=== PATIENT | male | born 1950 | race Caucasian/White ===

== ENCOUNTER 2019-10-23 20:02 | Inpatient (IN) | payer MEDICARE ==
[~2019-10-23] VITALS: Ht 185.4 cm; Wt 78.9 kg
[2019-10-23] MEDS: DILTIAZEM HCL 5 MG/ML 5 ML VIAL IVP ONE ×2 (20:30→20:34)
[2019-10-23] MEDS ORDERED: SODIUM CHLORIDE 0.9% 1,000 ML IV ONE (20:30)
[2019-10-23 20:39] LABS: BASOPHILS % (AUTO) 0.5 % (0.0-2.0); EOSINOPHILS % (AUTO) 2.4 % (1.0-6.0); HEMATOCRIT 33.2 % (41-53); HEMOGLOBIN 10.6 g/dL (13.5-17.5); LYMPHOCYTES # (AUTO) 4.2 K/uL (1.0-4.8); LYMPHOCYTES % (AUTO) 47.8 % (22.0-44.0); MEAN CORPUSCULAR HEMOGLOBIN 29.4 pg (26.0-34.0); MEAN CORPUSCULAR HGB CONC 31.9 G/dL (31.0-37.0); MEAN CORPUSCULAR VOLUME 92 fL (80-100); MONOCYTES # (AUTO) 0.8 K/uL (0.1-1.0); MONOCYTES % (AUTO) 9.1 % (2.0-9.0); NEUTROPHILS # (AUTO) 3.5 K/uL (1.8-7.7); NEUTROPHILS % (AUTO) 40.2 % (40.0-70.0); PLATELET COUNT (AUTO) 289 K/uL (150-450); RED BLOOD CELL COUNT(AUTO) 3.61 MIL/uL (4.50-5.90); RED CELL DISTRIBUTION WIDTH 18.2 % (11.5-14.5)
[2019-10-23 20:47] LABS: ANION GAP 7 mmol/L (8-16); CALCIUM, TOTAL 8.7 mg/dL (8.8-10.5); CARBON DIOXIDE 27 mmol/L (22-29); CHLORIDE 101 mmol/L (98-107); CREATININE 1.34 mg/dL (0.60-1.30); GLOMERULAR FILTR. RATE CALC 53 mL/min (>60); GLUCOSE,RANDOM 231 mg/dL (70-110); SODIUM SERUM 135 mmol/L (136-145); UREA NITROGEN, BLOOD 38 mg/dL (7-18)
[2019-10-23 20:55] LABS: AMMONIA 90 umol/L (11-32)
[2019-10-23 20:58] LABS: TROPONIN I < 0.02 ng/mL (0.00-0.05)
[2019-10-23 21:09] LABS: LACTIC ACID 2.4 mmol/L (0.4-2.0)
[2019-10-23 21:12] LABS: ALANINE AMINOTRANSFERASE 59 U/L (12-78); ALKALINE PHOSPHATASE 107 U/L (46-116); ASPARTATE AMINOTRANSFERASE 88 U/L (15-37); BILIRUBIN,TOTAL 0.2 mg/dL (0.1-1.0); CREATINE KINASE, TOTAL ONLY 83 U/L (39-308)
[2019-10-23 21:13] LABS: PROTHROMBIN TIME 10.6 SEC (9.4-11.6)
[2019-10-23] MEDS: PROPOFOL 1000 MG/ISO-OSM 100 ML IV PRN (21:30)
[2019-10-23 21:34] LABS: ABG A-A DIFF O2 461.2 mmHg (10-20.0); ABG BASE EXCESS -6.6 mmol/L (-2.0-3.0); ABG CARBOXYHEMOGLOBIN 1.3 % (0.0-1.5); ABG HCO3 18.6 mmol/L (22.0-26.0); ABG OXYGEN CONTENT 15.4 mL/dL (15.0-23.0); ABG OXYGEN SATURATION 98.5 % (95.0-98.0); ABG OXYHEMOGLOBIN 97.2 % (94.0-100.0); PO2, ARTERIAL BG 183.2 mmHg (79.0-87.0); SOURCE, BLOOD GAS ARTERIAL; TEMPERATURE, FAHRENHEIT, BG 98.4 FAHREN (96.0-98.6)
[2019-10-23 21:36] LABS: ABG PCO2 69 mmHg (35-45); ABG PH 7.132 (7.35-7.450); SITE, BLOOD GAS RT RADIAL
[2019-10-23 21:37] LABS: O2 DEVICE,BLOOD GAS VENTILATOR (ROOM AIR); PEEP,BG 5 cm H2O; VT, ABG 500 ml
[2019-10-23] MEDS ORDERED: MELA1TAB28 PO (22:30)
[2019-10-23] MEDS ORDERED: OLAN2.5T3 PO (22:30)
[2019-10-23] MEDS ORDERED: CALC0.25 PO (22:30)
[2019-10-23] MEDS ORDERED: CHOL100018 PO (22:30)
[2019-10-23] MEDS ORDERED: METO50 PO (22:30)
[2019-10-23] MEDS ORDERED: POTA-79 PO (22:30)
[2019-10-23] MEDS ORDERED: GABA-1181 PO (22:30)
[2019-10-23] MEDS ORDERED: CLOP-31 PO (22:30)
[2019-10-23] MEDS ORDERED: PERCT PO (22:30)
[2019-10-23 22:44] LABS: APPEARANCE,URINE CLEAR (CLEAR); BILIRUBIN,URINE NEGATIVE (NEGATIVE); GLUCOSE, URINE (UA) 100 mg/dL (NEGATIVE); KETONES,URINE NEGATIVE (NEGATIVE); LEUKOCYTE ESTERASE ,URINE NEGATIVE (NEGATIVE); NITRATE,URINE NEGATIVE (NEGATIVE); OCCULT BLOOD,URINE NEGATIVE (NEGATIVE); PROTEIN,URINE SEE CONFIRM (NEGATIVE)
[2019-10-23 22:49] LABS: AMPHET/METH SCREEN,URINE NEGATIVE (NEGATIVE); BARBITURATE SCREEN, URINE NEGATIVE (NEGATIVE); BENZODIAZEPINES SCREEN,URINE NEGATIVE (NEGATIVE); CANNABINOID SCREEN,URINE NEGATIVE (NEGATIVE); COCAINE SCREEN,URINE NEGATIVE (NEGATIVE); METHADONE SCREEN, URINE NEGATIVE (NEGATIVE); OPIATE SCREEN,URINE POSITIVE (NEGATIVE)
[2019-10-23 22:51] LABS: PHENCYCLIDINE SCREEN,URINE NEGATIVE (NEGATIVE); SULFOSALICYLIC ACID,URINE 4+ (Negative)
[2019-10-23 22:53] LABS: AMORPHOUS SEDIMENT,UR Few /LPF (None Seen); BACTERIA,URINE None Seen /HPF (None Seen); RBC,URINE 0-2 /HPF (0-2); SQUAMOUS EPITHELIAL CELL,UR Rare /LPF (None Seen); WBC,URINE 0-2 /HPF (0-5)
[2019-10-23] MEDS ORDERED: SODIUM CHLORIDE 0.9% 2,200 ML IV ONE (23:00)
[2019-10-24] VITALS (9 sets, daily range): BP systolic 78–134; BP diastolic 54–92
[2019-10-24] MEDS ORDERED: BISACODYL 10 MG RECTAL RECTAL SUPPOSITORY PR PRN (00:15)
[2019-10-24] MEDS ORDERED: ONDANSETRON HCL 4 MG/2 ML VIAL IVP PRN (00:15)
[2019-10-24] MEDS ORDERED: MAGNESIUM HYDROXIDE SUSPENSION 30 ML UDCUP PO PRN (00:15)
[2019-10-24] MEDS ORDERED: HEPARIN SODIUM,PORCINE 5,000 UNITS/ML VIAL IVP ONE (00:30)
[2019-10-24] MEDS ORDERED: AMIODARONE HCL 360 MG in DEXTROSE 5%-WATER 242.8 ML IV ONE (00:30)
[2019-10-24] MEDS ORDERED: AMIODARONE HCL 150 MG in DEXTROSE 5%-WATER 97 ML IV ONE (00:30)
[2019-10-24] MEDS ORDERED: HEPARIN SODIUM,PORCINE 5,000 UNITS/ML VIAL IVP PRN (00:30)
[2019-10-24] MEDS: PHENYLEPHRINE 200 MG/D5%-WATER 250 ML IV PRN ×2 (00:50→20:25)
[2019-10-24] MEDS: CefTRIAXone 1 GM/DEXTROSE 50 ML IV SCH (01:24)
[2019-10-24] MEDS: ACETAMINOPHEN 325 MG TABLET PO PRN ×2 (01:33→05:54)
[2019-10-24] MEDS: AZITHROMYCIN 500 MG/NS 250 ML IV SCH (01:58)
[2019-10-24] MEDS: PROPOFOL 1000 MG/ISO-OSM 100 ML IV PRN ×3 (02:00→19:57)
[2019-10-24] MEDS: HEPARIN SODIUM 25000 UNITS/D5W 250 ML IV PRN ×2 (02:02→17:53)
[2019-10-24 06:03] LABS: BASOPHILS % (AUTO) 0.3 % (0.0-2.0); EOSINOPHILS % (AUTO) 0.1 % (1.0-6.0); HEMATOCRIT 33.4 % (41-53); HEMOGLOBIN 10.7 g/dL (13.5-17.5); LYMPHOCYTES % (AUTO) 15.6 % (22.0-44.0); MEAN CORPUSCULAR HEMOGLOBIN 29.1 pg (26.0-34.0); MEAN CORPUSCULAR HGB CONC 31.9 G/dL (31.0-37.0); MEAN CORPUSCULAR VOLUME 91 fL (80-100); MONOCYTES # (AUTO) 1.2 K/uL (0.1-1.0); MONOCYTES % (AUTO) 8.9 % (2.0-9.0); NEUTROPHILS # (AUTO) 9.9 K/uL (1.8-7.7); NEUTROPHILS % (AUTO) 75.1 % (40.0-70.0); PLATELET COUNT (AUTO) 294 K/uL (150-450); RED BLOOD CELL COUNT(AUTO) 3.66 MIL/uL (4.50-5.90); RED CELL DISTRIBUTION WIDTH 17.6 % (11.5-14.5)
[2019-10-24 06:08] LABS: ANION GAP 4 mmol/L (8-16); CALCIUM, TOTAL 8.3 mg/dL (8.8-10.5); CARBON DIOXIDE 27 mmol/L (22-29); CHLORIDE 104 mmol/L (98-107); CREATININE 0.98 mg/dL (0.60-1.30); GLOMERULAR FILTR. RATE CALC > 60 mL/min (>60); GLUCOSE,RANDOM 123 mg/dL (70-110); POTASSIUM 4.1 mmol/L (3.5-5.1); SODIUM SERUM 135 mmol/L (136-145); UREA NITROGEN, BLOOD 31 mg/dL (7-18)
[2019-10-24] MEDS ORDERED: AMIODARONE HCL 540 MG in DEXTROSE 5%-WATER 239.2 ML IV ONE (06:30)
[2019-10-24] MEDS: HYDROCODONE/ACETAMINOPHEN 5-325 MG TABLET PO PRN ×2 (06:41→15:38)
[2019-10-24 09:04] LABS: SITE, BLOOD GAS LFT RADIAL
[2019-10-24 09:05] LABS: ABG BASE EXCESS -5.8 mmol/L (-2.0-3.0); ABG HCO3 19.9 mmol/L (22.0-26.0); ABG OXYHEMOGLOBIN 95.2 % (94.0-100.0); ABG PCO2 44 mmHg (35-45); ABG PH 7.288 (7.35-7.450); ABG TOTAL HEMOGLOBIN 11.1 G/dL (12.0-18.0); PO2, ARTERIAL BG 87.2 mmHg (79.0-87.0); TEMPERATURE, FAHRENHEIT, BG 100.1 FAHREN (96.0-98.6)
[2019-10-24 09:06] LABS: ABG A-A DIFF O2 213.7 mmHg (10-20.0); ABG CARBOXYHEMOGLOBIN 0.7 % (0.0-1.5); ABG METHEMOGLOBIN 0.3 % (0.0-1.5); ABG OXYGEN SATURATION 96.2 % (95.0-98.0); O2 DEVICE,BLOOD GAS VENTILATOR (ROOM AIR); VT, ABG 500 ml
[2019-10-24 09:07] LABS: PEEP,BG 5 cm H2O; SPONTANEOUS VT, BG 480 ml
[2019-10-24] MEDS: FAMOTIDINE 10 MG/ML 2 ML VIAL IVP SCH ×2 (09:46→20:57)
[2019-10-24] MEDS: DOCUSATE SODIUM 100 MG CAPSULE PO SCH ×2 (09:46→20:57)
[2019-10-24] MEDS: HEPARIN SODIUM,PORCINE 5,000 UNITS/ML VIAL IVP PRN (09:49)
[2019-10-24] MEDS ORDERED: ETOMIDATE 2 MG/ML 10 ML VIAL ONE (16:56)
[2019-10-24] MEDS ORDERED: VECURONIUM BROMIDE 10 MG/VIAL ONE (16:56)
[2019-10-24 17:08] LABS: SOURCE, BLOOD GAS ARTERIAL
[2019-10-24] MEDS ORDERED: SODIUM CHLORIDE 0.9% 100 ML ONE (18:52)
[2019-10-24] MEDS ORDERED: IOVERSOL 350 MG/ML 100 ML VIAL ONE (18:53)
[2019-10-24] MEDS: MORPHINE SULFATE 2 MG/ML SYRINGE IVP PRN (19:27)
[2019-10-24] MEDS: NICOTINE 14 MG/24 HOUR PATCH TD SCH (20:57)
[2019-10-24] MEDS ORDERED: LACTULOSE 20 GM/30 ML SOLUTION UDCUP NG ONE (21:45)
[2019-10-24] MEDS: SODIUM CHLORIDE 0.45% 1,000 ML IV SCH (22:23)
[2019-10-25] VITALS (9 sets, daily range): BP systolic 93–131; BP diastolic 53–91
[2019-10-25] MEDS: CefTRIAXone 1 GM/DEXTROSE 50 ML IV SCH (00:51)
[2019-10-25] MEDS: AMIODARONE HCL 750 MG in DEXTROSE 5%-WATER 485 ML IV SCH (01:02)
[2019-10-25] MEDS: PROPOFOL 1000 MG/ISO-OSM 100 ML IV PRN ×2 (01:46→06:19)
[2019-10-25] MEDS: AZITHROMYCIN 500 MG/NS 250 ML IV SCH (02:07)
[2019-10-25] MEDS: MORPHINE SULFATE 2 MG/ML SYRINGE IVP PRN ×6 (03:03→23:13)
[2019-10-25] MEDS: ACETAMINOPHEN 325 MG TABLET PO PRN (03:03)
[2019-10-25 05:21] LABS: BASOPHILS % (AUTO) 0.5 % (0.0-2.0); EOSINOPHILS % (AUTO) 0.9 % (1.0-6.0); HEMATOCRIT 29.7 % (41-53); HEMOGLOBIN 9.8 g/dL (13.5-17.5); LYMPHOCYTES # (AUTO) 1.6 K/uL (1.0-4.8); LYMPHOCYTES % (AUTO) 18.7 % (22.0-44.0); MEAN CORPUSCULAR HEMOGLOBIN 29.4 pg (26.0-34.0); MEAN CORPUSCULAR HGB CONC 32.8 G/dL (31.0-37.0); MEAN CORPUSCULAR VOLUME 90 fL (80-100); MONOCYTES # (AUTO) 1.1 K/uL (0.1-1.0); MONOCYTES % (AUTO) 12.8 % (2.0-9.0); NEUTROPHILS # (AUTO) 5.7 K/uL (1.8-7.7); NEUTROPHILS % (AUTO) 67.1 % (40.0-70.0); PLATELET COUNT (AUTO) 188 K/uL (150-450); RED BLOOD CELL COUNT(AUTO) 3.32 MIL/uL (4.50-5.90); RED CELL DISTRIBUTION WIDTH 17.6 % (11.5-14.5)
[2019-10-25 05:34] LABS: ALANINE AMINOTRANSFERASE 44 U/L (12-78); ALBUMIN 2.2 g/dL (3.4-5.0); ALKALINE PHOSPHATASE 71 U/L (46-116); ANION GAP 8 mmol/L (8-16); ASPARTATE AMINOTRANSFERASE 46 U/L (15-37); BILIRUBIN,TOTAL 0.4 mg/dL (0.1-1.0); CALCIUM, TOTAL 8.2 mg/dL (8.8-10.5); CARBON DIOXIDE 26 mmol/L (22-29); CHLORIDE 104 mmol/L (98-107); CREATININE 0.77 mg/dL (0.60-1.30); GLOMERULAR FILTR. RATE CALC > 60 mL/min (>60); GLUCOSE,RANDOM 116 mg/dL (70-110); POTASSIUM 3.3 mmol/L (3.5-5.1); SODIUM SERUM 138 mmol/L (136-145); TOTAL PROTEIN, SERUM 6.4 g/dL (6.4-8.2); UREA NITROGEN, BLOOD 17 mg/dL (7-18)
[2019-10-25] MEDS ORDERED: POTASSIUM CHL 10 MEQ/WATER 50 ML IV PRN ×2 (06:00)
[2019-10-25] MEDS ORDERED: POTASSIUM CHLORIDE 10% 40 MEQ/30 ML LIQUID UDCUP GT PRN ×2 (06:00)
[2019-10-25] MEDS ORDERED: POTASSIUM CHLORIDE 20 MEQ ER TABLET PO PRN ×2 (06:00)
[2019-10-25] MEDS ORDERED: SODIUM CHLORIDE 0.9% 100 ML ONE (08:24)
[2019-10-25] MEDS ORDERED: IOVERSOL 350 MG/ML 100 ML VIAL ONE (08:24)
[2019-10-25] MEDS: NICOTINE 14 MG/24 HOUR PATCH TD SCH (08:58)
[2019-10-25] MEDS: DOCUSATE SODIUM 100 MG CAPSULE PO SCH ×2 (08:58→21:00)
[2019-10-25] MEDS: FAMOTIDINE 10 MG/ML 2 ML VIAL IVP SCH ×2 (08:58→20:15)
[2019-10-25 09:52] LABS: ABG HCO3 21.9 mmol/L (22.0-26.0); ABG METHEMOGLOBIN 0.2 % (0.0-1.5); SOURCE, BLOOD GAS ARTERIAL; TEMPERATURE, FAHRENHEIT, BG 98.6 FAHREN (96.0-98.6)
[2019-10-25 09:55] LABS: ABG A-A DIFF O2 181.6 mmHg (10-20.0); ABG BASE EXCESS -3.9 mmol/L (-2.0-3.0); ABG CARBOXYHEMOGLOBIN 0.8 % (0.0-1.5); ABG OXYGEN CONTENT 13.5 mL/dL (15.0-23.0); ABG OXYGEN SATURATION 95.3 % (95.0-98.0); ABG OXYHEMOGLOBIN 94.3 % (94.0-100.0); ABG PCO2 29 mmHg (35-45); ABG PH 7.459 (7.35-7.450); ABG TOTAL HEMOGLOBIN 10.1 G/dL (12.0-18.0); PO2, ARTERIAL BG 70.6 mmHg (79.0-87.0); SITE, BLOOD GAS RT RADIAL
[2019-10-25 09:56] LABS: CPAP, BG 0 cm H2O; O2 DEVICE,BLOOD GAS VENTILATOR (ROOM AIR); PEEP,BG 0 cm H2O; PRESSURE SUPPORT, BG 8 cm H2O; SPONTANEOUS VT, BG 630 ml; VENT MODE, BG SPONTANEOUS (ROOM AIR)
[2019-10-25] MEDS: SODIUM CHLORIDE 0.45% 1,000 ML IV SCH (13:01)
[2019-10-25] MEDS ORDERED: DIGOXIN 250 MCG/ML 2 ML AMP IVP ONE (13:30)
[2019-10-25] MEDS: HYDROCODONE/ACETAMINOPHEN 5-325 MG TABLET PO PRN (19:38)
[2019-10-25] MEDS: MethylPREDNISolone SOD SUCC 40 MG/ML VIAL IVP SCH ×2 (20:15→23:13)
[2019-10-25] MEDS: HEPARIN SODIUM 25000 UNITS/D5W 250 ML IV PRN (21:18)
[2019-10-25] MEDS: BUDESONIDE 0.5 MG/2 ML NEB SOLUTION NEB SCH (23:51)
[2019-10-26] VITALS (10 sets, daily range): BP systolic 107–143; BP diastolic 69–98
[2019-10-26] MEDS: CefTRIAXone 1 GM/DEXTROSE 50 ML IV SCH (01:37)
[2019-10-26] MEDS: AMIODARONE HCL 750 MG in DEXTROSE 5%-WATER 485 ML IV SCH (01:38)
[2019-10-26] MEDS: AZITHROMYCIN 500 MG/NS 250 ML IV SCH (02:12)
[2019-10-26] MEDS: HYDROCODONE/ACETAMINOPHEN 5-325 MG TABLET PO PRN ×2 (02:43→17:58)
[2019-10-26] MEDS: MORPHINE SULFATE 2 MG/ML SYRINGE IVP PRN ×11 (03:24→23:55)
[2019-10-26] MEDS: SODIUM CHLORIDE 0.45% 1,000 ML IV SCH ×2 (05:28→22:54)
[2019-10-26] MEDS: MethylPREDNISolone SOD SUCC 40 MG/ML VIAL IVP SCH ×4 (05:29→23:02)
[2019-10-26] MEDS: HEPARIN SODIUM,PORCINE 5,000 UNITS/ML VIAL IVP PRN (06:06)
[2019-10-26 06:35] LABS: BASOPHILS % (AUTO) 0.2 % (0.0-2.0); EOSINOPHILS % (AUTO) 0 % (1.0-6.0); HEMOGLOBIN 10.5 g/dL (13.5-17.5); LYMPHOCYTES # (AUTO) 0.7 K/uL (1.0-4.8); LYMPHOCYTES % (AUTO) 13.7 % (22.0-44.0); MEAN CORPUSCULAR HEMOGLOBIN 29.8 pg (26.0-34.0); MEAN CORPUSCULAR HGB CONC 33.9 G/dL (31.0-37.0); MEAN CORPUSCULAR VOLUME 88 fL (80-100); MONOCYTES # (AUTO) 0.2 K/uL (0.1-1.0); MONOCYTES % (AUTO) 3.1 % (2.0-9.0); NEUTROPHILS # (AUTO) 4.1 K/uL (1.8-7.7); PLATELET COUNT (AUTO) 166 K/uL (150-450); RED BLOOD CELL COUNT(AUTO) 3.53 MIL/uL (4.50-5.90)
[2019-10-26 06:43] LABS: ANION GAP 7 mmol/L (8-16); CALCIUM, TOTAL 8.3 mg/dL (8.8-10.5); CARBON DIOXIDE 25 mmol/L (22-29); CHLORIDE 102 mmol/L (98-107); CREATININE 0.72 mg/dL (0.60-1.30); GLOMERULAR FILTR. RATE CALC > 60 mL/min (>60); GLUCOSE,RANDOM 164 mg/dL (70-110); POTASSIUM 3.5 mmol/L (3.5-5.1); SODIUM SERUM 134 mmol/L (136-145); UREA NITROGEN, BLOOD 13 mg/dL (7-18)
[2019-10-26] MEDS: DOCUSATE SODIUM 100 MG CAPSULE PO SCH ×2 (07:24→21:00)
[2019-10-26] MEDS: NICOTINE 14 MG/24 HOUR PATCH TD SCH (07:25)
[2019-10-26] MEDS: FAMOTIDINE 10 MG/ML 2 ML VIAL IVP SCH ×2 (07:25→20:40)
[2019-10-26] MEDS: BUDESONIDE 0.5 MG/2 ML NEB SOLUTION NEB SCH ×2 (09:23→20:27)
[2019-10-26] MEDS ORDERED: PENTETATE DTPA TC99M/MCL ISOTOPE 1 EA INJ INJ ONE (10:25)
[2019-10-26] MEDS ORDERED: MAA ALBUMIN AGGREGATED TC99M/UD<10MCL ISOTOPE 1 EA INJ INJ ONE (10:50)
[2019-10-26 12:54] LABS: PROTHROMBIN TIME 10.7 SEC (9.4-11.6)
[2019-10-26] MEDS: APIXABAN 5 MG TABLET PO SCH ×2 (13:00→22:57)
[2019-10-26] MEDS: LIDOCAINE 5% TRANSDERMAL PATCH TD SCH (14:06)
[2019-10-26] MEDS: AMIODARONE HCL 200 MG TABLET PO SCH ×2 (16:56→20:49)
[2019-10-26] MEDS: METOPROLOL SUCCINATE 50 MG ER TABLET PO SCH (17:06)
[2019-10-26] MEDS: -LIDODERM PATCH NOTE- MISC SCH (22:54)
[2019-10-27] VITALS (7 sets, daily range): BP systolic 111–141; BP diastolic 72–102
[2019-10-27] MEDS ORDERED: SODIUM CHLORIDE 0.9% 100 ML ONE (00:56)
[2019-10-27] MEDS: CefTRIAXone 1 GM/DEXTROSE 50 ML IV SCH (01:06)
[2019-10-27] MEDS: ZOLPIDEM TARTRATE 10 MG TABLET PO PRN ×2 (01:07→23:49)
[2019-10-27] MEDS: AZITHROMYCIN 500 MG/NS 250 ML IV SCH (01:10)
[2019-10-27] MEDS: MORPHINE SULFATE 2 MG/ML SYRINGE IVP PRN ×9 (04:08→23:50)
[2019-10-27] MEDS: MethylPREDNISolone SOD SUCC 40 MG/ML VIAL IVP SCH ×3 (06:00→20:58)
[2019-10-27 06:52] LABS: BASOPHILS % (AUTO) 0.1 % (0.0-2.0); EOSINOPHILS % (AUTO) 0 % (1.0-6.0); HEMATOCRIT 34.5 % (41-53); HEMOGLOBIN 11.1 g/dL (13.5-17.5); LYMPHOCYTES # (AUTO) 0.9 K/uL (1.0-4.8); LYMPHOCYTES % (AUTO) 11.4 % (22.0-44.0); MEAN CORPUSCULAR HEMOGLOBIN 28.7 pg (26.0-34.0); MEAN CORPUSCULAR HGB CONC 32.1 G/dL (31.0-37.0); MEAN CORPUSCULAR VOLUME 89 fL (80-100); MONOCYTES # (AUTO) 0.4 K/uL (0.1-1.0); MONOCYTES % (AUTO) 5.1 % (2.0-9.0); NEUTROPHILS # (AUTO) 6.4 K/uL (1.8-7.7); NEUTROPHILS % (AUTO) 83.4 % (40.0-70.0); PLATELET COUNT (AUTO) 231 K/uL (150-450); RED BLOOD CELL COUNT(AUTO) 3.86 MIL/uL (4.50-5.90); RED CELL DISTRIBUTION WIDTH 17.2 % (11.5-14.5)
[2019-10-27 07:11] LABS: ALANINE AMINOTRANSFERASE 31 U/L (12-78); ALBUMIN 2.2 g/dL (3.4-5.0); ALKALINE PHOSPHATASE 64 U/L (46-116); ANION GAP 9 mmol/L (8-16); ASPARTATE AMINOTRANSFERASE 26 U/L (15-37); BILIRUBIN,TOTAL 0.2 mg/dL (0.1-1.0); CALCIUM, TOTAL 8.3 mg/dL (8.8-10.5); CARBON DIOXIDE 25 mmol/L (22-29); CHLORIDE 103 mmol/L (98-107); CREATININE 0.78 mg/dL (0.60-1.30); GLOMERULAR FILTR. RATE CALC > 60 mL/min (>60); GLUCOSE,RANDOM 152 mg/dL (70-110); POTASSIUM 3.8 mmol/L (3.5-5.1); SODIUM SERUM 137 mmol/L (136-145); TOTAL PROTEIN, SERUM 6.7 g/dL (6.4-8.2); UREA NITROGEN, BLOOD 26 mg/dL (7-18)
[2019-10-27] MEDS: DOCUSATE SODIUM 100 MG CAPSULE PO SCH ×2 (08:13→20:57)
[2019-10-27] MEDS: BUDESONIDE 0.5 MG/2 ML NEB SOLUTION NEB SCH ×2 (08:13→20:51)
[2019-10-27] MEDS: AMIODARONE HCL 200 MG TABLET PO SCH ×2 (08:14→20:57)
[2019-10-27] MEDS: FAMOTIDINE 10 MG/ML 2 ML VIAL IVP SCH ×2 (08:15→20:58)
[2019-10-27] MEDS: NICOTINE 14 MG/24 HOUR PATCH TD SCH (08:15)
[2019-10-27] MEDS: LIDOCAINE 5% TRANSDERMAL PATCH TD SCH (08:16)
[2019-10-27] MEDS: APIXABAN 5 MG TABLET PO SCH ×2 (08:16→20:57)
[2019-10-27] MEDS: METOPROLOL SUCCINATE 50 MG ER TABLET PO SCH (08:18)
[2019-10-27] MEDS ORDERED: LISINOPRIL 20 MG TABLET PO SCH (14:00)
[2019-10-27] MEDS: HYDROCODONE/ACETAMINOPHEN 5-325 MG TABLET PO PRN ×2 (16:38→20:59)
[2019-10-27] MEDS: SODIUM CHLORIDE 0.45% 1,000 ML IV SCH (16:59)
[2019-10-27] MEDS: -LIDODERM PATCH NOTE- MISC SCH (21:00)
[2019-10-28] VITALS (8 sets, daily range): BP systolic 138–147; BP diastolic 89–98
[2019-10-28] MEDS ORDERED: SODIUM CHLORIDE 0.9% 250 ML IV ONE (01:39)
[2019-10-28] MEDS: AZITHROMYCIN 500 MG/NS 250 ML IV SCH (02:40)
[2019-10-28] MEDS: CefTRIAXone 1 GM/DEXTROSE 50 ML IV SCH (02:42)
[2019-10-28] MEDS: MORPHINE SULFATE 2 MG/ML SYRINGE IVP PRN ×9 (04:09→23:13)
[2019-10-28 07:04] LABS: BASOPHILS % (AUTO) 0.1 % (0.0-2.0); EOSINOPHILS % (AUTO) 0 % (1.0-6.0); HEMATOCRIT 29.8 % (41-53); HEMOGLOBIN 10.2 g/dL (13.5-17.5); LYMPHOCYTES # (AUTO) 0.9 K/uL (1.0-4.8); LYMPHOCYTES % (AUTO) 12.9 % (22.0-44.0); MEAN CORPUSCULAR HGB CONC 34.3 G/dL (31.0-37.0); MEAN CORPUSCULAR VOLUME 88 fL (80-100); MONOCYTES # (AUTO) 0.5 K/uL (0.1-1.0); MONOCYTES % (AUTO) 7.3 % (2.0-9.0); NEUTROPHILS # (AUTO) 5.3 K/uL (1.8-7.7); NEUTROPHILS % (AUTO) 79.7 % (40.0-70.0); PLATELET COUNT (AUTO) 210 K/uL (150-450); RED CELL DISTRIBUTION WIDTH 17.3 % (11.5-14.5)
[2019-10-28] MEDS: BUDESONIDE 0.5 MG/2 ML NEB SOLUTION NEB SCH ×2 (08:57→20:43)
[2019-10-28] MEDS: DOCUSATE SODIUM 100 MG CAPSULE PO SCH ×2 (09:00→21:00)
[2019-10-28] MEDS: NICOTINE 14 MG/24 HOUR PATCH TD SCH (09:03)
[2019-10-28] MEDS: MethylPREDNISolone SOD SUCC 40 MG/ML VIAL IVP SCH (09:03)
[2019-10-28] MEDS: LIDOCAINE 5% TRANSDERMAL PATCH TD SCH (09:04)
[2019-10-28] MEDS: FAMOTIDINE 10 MG/ML 2 ML VIAL IVP SCH ×2 (09:05→20:59)
[2019-10-28] MEDS: APIXABAN 5 MG TABLET PO SCH ×2 (09:05→21:00)
[2019-10-28] MEDS: METOPROLOL SUCCINATE 50 MG ER TABLET PO SCH (09:05)
[2019-10-28] MEDS: LISINOPRIL 20 MG TABLET PO SCH ×2 (09:05→21:00)
[2019-10-28] MEDS: AMIODARONE HCL 200 MG TABLET PO SCH ×2 (09:05→21:00)
[2019-10-28] MEDS: ALBUTEROL SULFATE 2.5 MG/0.5 ML NEB SOLUTION NEB PRN (20:43)
[2019-10-28] MEDS: PredniSONE 10 MG TABLET PO SCH (21:00)
[2019-10-28] MEDS: -LIDODERM PATCH NOTE- MISC SCH (21:01)
[2019-10-28] MEDS: SODIUM CHLORIDE 0.45% 1,000 ML IV SCH (21:36)
[2019-10-28] MEDS: ZOLPIDEM TARTRATE 10 MG TABLET PO PRN (23:13)
[2019-10-29] VITALS (7 sets, daily range): BP systolic 139–158; BP diastolic 94–108
[2019-10-29] MEDS: AZITHROMYCIN 500 MG/NS 250 ML IV SCH (03:23)
[2019-10-29] MEDS: CefTRIAXone 1 GM/DEXTROSE 50 ML IV SCH (03:23)
[2019-10-29] MEDS: MORPHINE SULFATE 2 MG/ML SYRINGE IVP PRN ×8 (03:36→22:18)
[2019-10-29 07:06] LABS: ALANINE AMINOTRANSFERASE 35 U/L (12-78); ALBUMIN 2.4 g/dL (3.4-5.0); ALKALINE PHOSPHATASE 63 U/L (46-116); ANION GAP 5 mmol/L (8-16); ASPARTATE AMINOTRANSFERASE 28 U/L (15-37); BILIRUBIN,TOTAL 0.2 mg/dL (0.1-1.0); CARBON DIOXIDE 28 mmol/L (22-29); CHLORIDE 100 mmol/L (98-107); CREATININE 0.88 mg/dL (0.60-1.30); GLOMERULAR FILTR. RATE CALC > 60 mL/min (>60); GLUCOSE,RANDOM 126 mg/dL (70-110); POTASSIUM 3.7 mmol/L (3.5-5.1); SODIUM SERUM 133 mmol/L (136-145); TOTAL PROTEIN, SERUM 6.8 g/dL (6.4-8.2); UREA NITROGEN, BLOOD 27 mg/dL (7-18)
[2019-10-29 07:23] LABS: BASOPHILS % (AUTO) 0.1 % (0.0-2.0); EOSINOPHILS % (AUTO) 0 % (1.0-6.0); LYMPHOCYTES % (AUTO) 11.6 % (22.0-44.0); MEAN CORPUSCULAR HEMOGLOBIN 29.1 pg (26.0-34.0); MEAN CORPUSCULAR HGB CONC 33.2 G/dL (31.0-37.0); MEAN CORPUSCULAR VOLUME 88 fL (80-100); MONOCYTES # (AUTO) 0.8 K/uL (0.1-1.0); MONOCYTES % (AUTO) 9.4 % (2.0-9.0); NEUTROPHILS # (AUTO) 6.8 K/uL (1.8-7.7); NEUTROPHILS % (AUTO) 78.9 % (40.0-70.0); PLATELET COUNT (AUTO) 254 K/uL (150-450); RED BLOOD CELL COUNT(AUTO) 3.76 MIL/uL (4.50-5.90); RED CELL DISTRIBUTION WIDTH 17.4 % (11.5-14.5)
[2019-10-29] MEDS: LISINOPRIL 20 MG TABLET PO SCH ×2 (08:13→20:41)
[2019-10-29] MEDS: AMIODARONE HCL 200 MG TABLET PO SCH ×2 (08:13→20:41)
[2019-10-29] MEDS: METOPROLOL SUCCINATE 50 MG ER TABLET PO SCH (08:14)
[2019-10-29] MEDS: NICOTINE 14 MG/24 HOUR PATCH TD SCH (08:14)
[2019-10-29] MEDS: FAMOTIDINE 10 MG/ML 2 ML VIAL IVP SCH ×2 (08:14→20:41)
[2019-10-29] MEDS: APIXABAN 5 MG TABLET PO SCH ×2 (08:14→20:41)
[2019-10-29] MEDS: LIDOCAINE 5% TRANSDERMAL PATCH TD SCH (08:15)
[2019-10-29] MEDS: PredniSONE 10 MG TABLET PO SCH (08:15)
[2019-10-29] MEDS: BUDESONIDE 0.5 MG/2 ML NEB SOLUTION NEB SCH ×2 (08:41→20:13)
[2019-10-29] MEDS: DOCUSATE SODIUM 100 MG CAPSULE PO SCH ×3 (09:00→21:00)
[2019-10-29] MEDS: HYDROCODONE/ACETAMINOPHEN 5-325 MG TABLET PO PRN (14:53)
[2019-10-29] MEDS: ALBUTEROL SULFATE 2.5 MG/0.5 ML NEB SOLUTION NEB PRN ×2 (16:47→20:13)
[2019-10-29] MEDS: IPRATROPIUM BROMIDE 0.5 MG/2.5 ML NEB SOLUTION NEB PRN (16:47)
[2019-10-29] MEDS: -LIDODERM PATCH NOTE- MISC SCH (20:41)
[2019-10-30] VITALS (7 sets, daily range): BP systolic 113–142; BP diastolic 67–99
[2019-10-30] MEDS: CefTRIAXone 1 GM/DEXTROSE 50 ML IV SCH (00:34)
[2019-10-30] MEDS: ZOLPIDEM TARTRATE 10 MG TABLET PO PRN (00:35)
[2019-10-30] MEDS: MORPHINE SULFATE 2 MG/ML SYRINGE IVP PRN ×10 (00:35→22:18)
[2019-10-30] MEDS: AZITHROMYCIN 500 MG/NS 250 ML IV SCH (01:28)
[2019-10-30 06:44] LABS: BASOPHILS % (AUTO) 0.1 % (0.0-2.0); EOSINOPHILS % (AUTO) 0.4 % (1.0-6.0); HEMATOCRIT 37.3 % (41-53); HEMOGLOBIN 12.5 g/dL (13.5-17.5); LYMPHOCYTES # (AUTO) 2.4 K/uL (1.0-4.8); LYMPHOCYTES % (AUTO) 20.1 % (22.0-44.0); MEAN CORPUSCULAR HEMOGLOBIN 29.1 pg (26.0-34.0); MEAN CORPUSCULAR HGB CONC 33.4 G/dL (31.0-37.0); MEAN CORPUSCULAR VOLUME 87 fL (80-100); MONOCYTES # (AUTO) 1.3 K/uL (0.1-1.0); MONOCYTES % (AUTO) 11.1 % (2.0-9.0); NEUTROPHILS % (AUTO) 68.3 % (40.0-70.0); PLATELET COUNT (AUTO) 284 K/uL (150-450); RED BLOOD CELL COUNT(AUTO) 4.29 MIL/uL (4.50-5.90)
[2019-10-30 07:04] LABS: ALANINE AMINOTRANSFERASE 40 U/L (12-78); ALBUMIN 2.5 g/dL (3.4-5.0); ALKALINE PHOSPHATASE 69 U/L (46-116); ANION GAP 10 mmol/L (8-16); ASPARTATE AMINOTRANSFERASE 41 U/L (15-37); BILIRUBIN,TOTAL 0.2 mg/dL (0.1-1.0); CALCIUM, TOTAL 8.1 mg/dL (8.8-10.5); CARBON DIOXIDE 28 mmol/L (22-29); CHLORIDE 98 mmol/L (98-107); CREATININE 0.86 mg/dL (0.60-1.30); GLOMERULAR FILTR. RATE CALC > 60 mL/min (>60); GLUCOSE,RANDOM 85 mg/dL (70-110); POTASSIUM 3.3 mmol/L (3.5-5.1); SODIUM SERUM 136 mmol/L (136-145); TOTAL PROTEIN, SERUM 6.9 g/dL (6.4-8.2); UREA NITROGEN, BLOOD 20 mg/dL (7-18)
[2019-10-30] MEDS: AMIODARONE HCL 200 MG TABLET PO SCH (08:24)
[2019-10-30] MEDS: METOPROLOL SUCCINATE 50 MG ER TABLET PO SCH (08:24)
[2019-10-30] MEDS: PredniSONE 10 MG TABLET PO SCH (08:25)
[2019-10-30] MEDS: LISINOPRIL 20 MG TABLET PO SCH ×2 (08:25→20:32)
[2019-10-30] MEDS: APIXABAN 5 MG TABLET PO SCH ×3 (08:25→22:17)
[2019-10-30] MEDS: FAMOTIDINE 10 MG/ML 2 ML VIAL IVP SCH ×2 (08:25→20:45)
[2019-10-30] MEDS: NICOTINE 14 MG/24 HOUR PATCH TD SCH (08:28)
[2019-10-30] MEDS: DOCUSATE SODIUM 100 MG CAPSULE PO SCH ×2 (09:53→20:45)
[2019-10-30] MEDS: LIDOCAINE 5% TRANSDERMAL PATCH TD SCH (10:23)
[2019-10-30] MEDS: BUDESONIDE 0.5 MG/2 ML NEB SOLUTION NEB SCH ×2 (14:35→20:27)
[2019-10-30] MEDS ORDERED: SODIUM CHLORIDE 0.9% 500 ML IV ONE (20:19)
[2019-10-30] MEDS: -LIDODERM PATCH NOTE- MISC SCH ×2 (21:00→21:07)
[2019-10-30] MEDS ORDERED: NICOTINE 14 MG/24 HOUR PATCH TD ONE (23:00)
[2019-10-31] VITALS: BP 145/98
[2019-10-31] MEDS: CefTRIAXone 1 GM/DEXTROSE 50 ML IV SCH (00:16)
[2019-10-31] MEDS: ZOLPIDEM TARTRATE 10 MG TABLET PO PRN ×2 (00:20→22:53)
[2019-10-31] MEDS: AZITHROMYCIN 500 MG/NS 250 ML IV SCH (01:54)
[2019-10-31] MEDS: MORPHINE SULFATE 2 MG/ML SYRINGE IVP PRN ×10 (03:12→22:51)
[2019-10-31 05:14] VITALS: BP 122/74
[2019-10-31 07:42] LABS: HEMATOCRIT 37.8 % (41-53); HEMOGLOBIN 12.8 g/dL (13.5-17.5); MEAN CORPUSCULAR HEMOGLOBIN 29.6 pg (26.0-34.0); MEAN CORPUSCULAR HGB CONC 33.8 G/dL (31.0-37.0); MEAN CORPUSCULAR VOLUME 88 fL (80-100); PLATELET COUNT (AUTO) 295 K/uL (150-450); RED BLOOD CELL COUNT(AUTO) 4.31 MIL/uL (4.50-5.90)
[2019-10-31 07:51] VITALS: BP 130/89
[2019-10-31 07:59] LABS: ANION GAP 7 mmol/L (8-16); CALCIUM, TOTAL 8.2 mg/dL (8.8-10.5); CARBON DIOXIDE 28 mmol/L (22-29); CHLORIDE 99 mmol/L (98-107); CREATININE 0.66 mg/dL (0.60-1.30); GLOMERULAR FILTR. RATE CALC > 60 mL/min (>60); GLUCOSE,RANDOM 85 mg/dL (70-110); POTASSIUM 3.8 mmol/L (3.5-5.1); SODIUM SERUM 134 mmol/L (136-145); UREA NITROGEN, BLOOD 21 mg/dL (7-18)
[2019-10-31] MEDS: APIXABAN 5 MG TABLET PO SCH ×2 (08:04→19:46)
[2019-10-31] MEDS: METOPROLOL SUCCINATE 50 MG ER TABLET PO SCH (08:04)
[2019-10-31] MEDS: AMIODARONE HCL 200 MG TABLET PO SCH (08:04)
[2019-10-31] MEDS: FAMOTIDINE 10 MG/ML 2 ML VIAL IVP SCH ×2 (08:04→19:47)
[2019-10-31] MEDS: NICOTINE 14 MG/24 HOUR PATCH TD SCH (08:05)
[2019-10-31] MEDS: PredniSONE 10 MG TABLET PO SCH (08:05)
[2019-10-31] MEDS: LISINOPRIL 20 MG TABLET PO SCH ×2 (08:05→19:46)
[2019-10-31] MEDS: LIDOCAINE 5% TRANSDERMAL PATCH TD SCH (08:06)
[2019-10-31] MEDS: DOCUSATE SODIUM 100 MG CAPSULE PO SCH ×3 (08:08→19:57)
[2019-10-31 09:01] LABS: BAND NEUTROPHILS % (MANUAL) 4 % (0-5); LYMPHOCYTES % (MANUAL) 37 % (22-44); MONOCYTES % (MANUAL) 7 % (2-9); SEGMENTED NEUTROPHILS % 52 % (40-70)
[2019-10-31] MEDS: BUDESONIDE 0.5 MG/2 ML NEB SOLUTION NEB SCH ×2 (09:07→21:17)
[2019-10-31 15:30] VITALS: BP 123/57
[2019-10-31] MEDS: HYDROCODONE/ACETAMINOPHEN 5-325 MG TABLET PO PRN ×2 (15:36→19:47)
[2019-10-31] MEDS ORDERED: MAGNESIUM SULFATE 2 GM/WATER 50 ML IV ONE (16:00)
[2019-10-31 19:50] VITALS: BP 112/76
[2019-10-31] MEDS: -LIDODERM PATCH NOTE- MISC SCH (20:46)
[2019-10-31] MEDS: ALBUTEROL SULFATE 2.5 MG/0.5 ML NEB SOLUTION NEB PRN (21:17)
[2019-10-31] MEDS: IPRATROPIUM BROMIDE 0.5 MG/2.5 ML NEB SOLUTION NEB PRN (21:17)
[2019-11-01] MEDS: CefTRIAXone 1 GM/DEXTROSE 50 ML IV SCH (00:46)
[2019-11-01] MEDS: AZITHROMYCIN 500 MG/NS 250 ML IV SCH (01:56)
[2019-11-01] MEDS: MORPHINE SULFATE 2 MG/ML SYRINGE IVP PRN ×4 (03:44→11:55)
[2019-11-01 04:33] VITALS: BP 134/86
[2019-11-01 07:52] VITALS: BP 129/79
[2019-11-01] MEDS: FAMOTIDINE 10 MG/ML 2 ML VIAL IVP SCH (08:01)
[2019-11-01] MEDS: LISINOPRIL 20 MG TABLET PO SCH (08:01)
[2019-11-01] MEDS: APIXABAN 5 MG TABLET PO SCH (08:02)
[2019-11-01] MEDS: HYDROCODONE/ACETAMINOPHEN 5-325 MG TABLET PO PRN (08:02)
[2019-11-01] MEDS: PredniSONE 10 MG TABLET PO SCH (08:02)
[2019-11-01] MEDS: METOPROLOL SUCCINATE 50 MG ER TABLET PO SCH (08:02)
[2019-11-01] MEDS: NICOTINE 14 MG/24 HOUR PATCH TD SCH (08:03)
[2019-11-01] MEDS: AMIODARONE HCL 200 MG TABLET PO SCH (08:03)
[2019-11-01] MEDS: LIDOCAINE 5% TRANSDERMAL PATCH TD SCH ×2 (08:03→09:00)
[2019-11-01] MEDS: DOCUSATE SODIUM 100 MG CAPSULE PO SCH (08:11)
[2019-11-01] MEDS: ALBUTEROL SULFATE 2.5 MG/0.5 ML NEB SOLUTION NEB PRN (08:31)
[2019-11-01] MEDS: IPRATROPIUM BROMIDE 0.5 MG/2.5 ML NEB SOLUTION NEB PRN (08:32)
[2019-11-01] MEDS: BUDESONIDE 0.5 MG/2 ML NEB SOLUTION NEB SCH (08:32)
[2019-11-01 11:20] VITALS: BP 109/80
[2019-11-01] MEDS ORDERED: COMBISP IH (13:23)
[2019-11-01] MEDS ORDERED: PRED20 PO (13:23)
[2019-11-01] MEDS ORDERED: APIX5TAB PO (13:23)
[2019-11-01] MEDS ORDERED: METO-391 PO (13:23)
[2019-11-01] MEDS ORDERED: LISI-618 PO (13:23)
[2019-11-01] MEDS ORDERED: BUDE180H PO (13:23)
[2019-11-01] MEDS ORDERED: AMIO200T68 PO (13:23)
== END 2019-11-01 13:35 | disposition home or self-care (01) | DRG 208 ==
LOC: EMS 20:02 → ICU 23:07 → 5S 10-26 13:45 → 6S 10-30 18:25
PROVIDERS: ADMIT Hospitalist; ATTEND Hospitalist
PROC: 5A1945Z Respiratory Ventilation, 24-96 Consecutive Hours (ICD-10-PCS; principal; 2019-10-23)
PROC: 0BH17EZ Insertion of Endotracheal Airway into Trachea, Via Natural or Artificial Opening (ICD-10-PCS; 2019-10-23)
PROC: 5A12012 Performance of Cardiac Output, Single, Manual (ICD-10-PCS; 2019-10-23)
DX: J96.01 Acute respiratory failure with hypoxia (principal); I46.9 Cardiac arrest, cause unspecified; J44.1 Chronic obstructive pulmonary disease with (acute) exacerbation; R65.10 Systemic inflammatory response syndrome (SIRS) of non-infectious origin without acute organ dysfunction; D64.9 Anemia, unspecified; I10 Essential (primary) hypertension; I48.91 Unspecified atrial fibrillation; Z20.828 Contact with and (suspected) exposure to other viral communicable diseases; J44.9 Chronic obstructive pulmonary disease, unspecified; F17.210 Nicotine dependence, cigarettes, uncomplicated; Z88.6 Allergy status to analgesic agent; Z91.013 Allergy to seafood; Z79.899 Other long term (current) drug therapy; Z79.891 Long term (current) use of opiate analgesic; Z79.01 Long term (current) use of anticoagulants
CPT/HCPCS: 36600; 51702; 70450; 78582; 82271; 82805; 83605; 83735; 84132; 87040; 87070; 87081; 87205; 87426; 92610; 93005; 93306; 94002; 94003; 94640; 97116; 97166; 97530; 97535; 99291; A9539; A9540; G0378; G0480; J0282; J0456; J0696; J1160; J1644; J2270; J2370; J2704; J2920; J3475; J3490; J7030; J7040; J7050; J7060; 36415-L1; 36415-TC; 71045-TC; 87635; J7512; J7613; Z7610